=== PATIENT | female | born 1965 | race Hispanic/Latino ===

== ENCOUNTER 2024-08-17 19:19 | Emergency (ER) | payer OTHER ==
[2024-08-17] MEDS ORDERED: Acetaminophen 500 MG TAB ONE (19:44)
[2024-08-17] MEDS ORDERED: Ketorolac Tromethamine 30 MG (1 mL) VIAL ONE (19:44)
[2024-08-17 20:07] LABS: #Basophils Less than 0.03 10x3/uL (0.0-0.2); %Basophils 0.2 % (0.0-1.0); %Eosinophils 2.4 % (0.0-10.0); %Lymphocytes 36.9 % (21.0-51.0); %Monocytes 6.7 % (0.0-10.0); %Neutrophils 53.6 % (42.0-75.0); Hematocrit 43.6 % (36.0-47.0); Hemoglobin 15.4 g/dL (12.0-16.0); Mean Corpuscular HGB CONC 35.3 g/dL (32.0-36.0); Mean Corpuscular Hemoglobin 29.9 pg (27.0-31.0); Mean Corpuscular Volume 84.7 fL (78.0-98.0); Mean Platelet Volume 10.9 fL (7.4-10.4); Platelet Count 111 10x3/uL (130-400); RBC Distribution Width 12.6 % (11.5-14.5); Red Blood Cell (RBC) Count 5.15 mill/uL (4.20-5.40)
[2024-08-17 20:25] LABS: Platelet Adequacy Comment Platelets Decreased
[2024-08-17 20:26] LABS: ALT (SGPT) 27 U/L (8-55); AST (SGOT) 30 U/L (5-34); Albumin 4.1 g/dL (3.5-5.0); Alkaline Phosphatase 96 U/L (40-110); Anion Gap 14 mmol/L (10-20); BUN (Urea Nitrogen) 10 mg/dL (9.8-20.1); Bilirubin, Total 0.3 mg/dL (0.2-1.2); Calc. Creatinine Clearance 0 mL/min (70-130); Calcium 9.1 mg/dL (7.8-10.44); Carbon Dioxide 24 mmol/L (22-29); Chloride 107 mmol/L (98-107); Estimated GFR 89; Globulin 3.6 g/dL (2.4-3.5); Glucose 95 mg/dL (70-105); Potassium 3.6 mmol/L (3.5-5.1); Protein, Total 7.7 g/dL (6.0-8.3); Sodium 141 mmol/L (136-145)
[2024-08-17 20:32] LABS: Troponin I Less than 0.010 ng/mL (< 0.028)
== END 2024-08-17 20:50 | disposition home or self-care (01) ==
LOC: ERS 19:19
DX: I10 Essential (primary) hypertension (principal)
CPT/HCPCS: 36415; 71045; 80053; 83880; 84443; 84484; 85025; 85379; 93005; 96374; J1885